=== PATIENT | male | born 1980 | race Caucasian/White ===

== ENCOUNTER 2025-06-22 10:09 | Emergency (ER) | payer MEDICAID, SELFPAY ==
--- OUTSIDE RECORDS SUMMARY | 2025-06-22 10:12 | XMS_ITS | Encounter Summary ---
Author Organization [facility] Address [address] [place] [address] Care Team Providers Care Telephone Claims Representative Name Role Phone None Reported, Pcp Primary Care Provider Unavail able Encounter Details Date Type Department Care Team (Late st Contact Info) Description 05/10/2025 Clinical Communication Department of Wound Care in [place], [place] [address] [place] [phone] Sharon Huizar, MALOU, C.N.P. [address] [place] [phone] Social History Tobacco Use Types Packs/Day Years Used Date Smoking Tobacco: Never Alcohol Use Standard Drinks/Week Comments Defer 0 (1 standard drink = 0.6 oz pur e alcohol) [facility] Utilities Answer Date Recorded In the past [address] [facility] [employer], gas, oil, or water [employer] threatened to shut off services in your home? No 03/19/2025 Humiliation, Afraid, Rape, and Kick questionnair e Answer Date Recorded Within the last year, have y ou been afraid of your partner or ex-partner? No 03/19/2025 Within the last year, have y ou been humiliated or emotionally abused in other ways by your partner or ex-partner? No Within the last year, have y ou been kicked, hit, slapped, or otherwise physically hurt by your partner or ex-partner? No 03/19/2025 Within the last year, have y ou been raped or forced to have any kind of sexual activity by your partner or ex-partner? No 03/19/2025 Hunger Vital Sign Answer Date Recorded Within the past 12 months, y ou worried that your food would run out before you got the money to buy more. Never true 03/19/20 25 Within the past 12 months, t he food you bought just didn't last and you didn't have money to get more. Never true 03/19/2025 PRAPARE - Transportation Answer Date Re corded In the past 12 months, has l ack of transportation kept you from medical appointments or from getting medications? No 03/08 In the past 12 months, has l ack of transportation kept you from meetings, work, or from getting things needed for daily living? No 03/19/2025 Housing Stability Answer Date Recorded What is your living situatio n today? I do not have a steady place to live (I am temporarily staying with others, in a hotel, in a longterm, living outside on the street, on a beach, in a car, abandoned building, bus or train station, or in a park) 03/18/2025 Sex and Gender Information Value Date Recorded Sex Assigned at Not on file Legal Sex Male 12:27 PM CDT Gender Identity Not on file Sexual Orientation Not on file documented as of this encounter Plan of Treatment Not on file documented as of this encounter Visit Diagnoses Not on filedocumented in this encounter Care Teams Telephone Claims Representative Relationship Specialty Start Date End Date None Reported, Pcp PCP - General Family Medicine 03/17/25 documented as of this encounter
--- OUTSIDE RECORDS SUMMARY | 2025-06-22 10:12 | XMS_ITS | Clinical Summary ---
Author Organization [facility] Address [address] [place] [address] Care Team Providers Care Experimental Aircraft Mechanic Name Role Phone None Reported, Pcp Primary Care Provider Unavail able Source Comments Patient records contain information from all sites at [facility]. For routine questions regarding patient records, call [phone] during business hours, M-F 8:00 AM - 5:00 PM Central Time. Record requests for emergency care only can be directed to [phone] at any time.[facility] Allergies No known active allergies Medications naproxen (EC-Naprosyn) 500 mg EC tablet Take 500 mg by mouth 2 (two) times a day as needed for pain. Active pen needle, diabetic (BD Ultra-Fine Mini Pen Needle) 31 gauge x 3/16 needleIndications :Diabetes Mellitus Type 2 Hyperglycemia (HCC) 4 each (4 Injection total) 4 (four) times a day. Use as needed for insulin injection. 400 each 3 5 Active blood sugar diagnostic stripsIndications :Diabetes Mellitus Type 2 Hyperglycemia (HCC) 4 test daily. 360 test 3 5 026 Active blood-glucose meter miscIndications:D iabetes Mellitus Type 2 Hyperglycemia (HCC) Test as directed for diabetes control. 1 each 5 Active lancetsIndication s:Diabetes Mellitus Type 2 Hyperglycemia (HCC) Use as directed for diabetes testing. 100 each 5 Active blood-glucose sensor (Dexcom G7 Sensor) deviceIndications :Diabetes Mellitus Type 2 Hyperglycemia (HCC) Use as directed for continuous glucose monitoring change every 10 days 9 each 3 5 Active miconazole 2 % powder Apply 1 Application topically daily. Apply to toes. 85 g 1 5 Active insulin glargine 100 unit/mL (3 mL) pen Inject 10 Units under the skin at bedtime. Pharmacy select brand per patient insurance/prefe rence. 15 mL 1 5 Active acetic acid 0.25 % irrigation (sterile) Apply topically daily. Apply to wounds daily as directed 500 mL 2 5 Active insulin aspart U-100 (NovoLOG FlexPen) 100 unit/mL (3 mL) pen Inject 0-13 Units under the skin 3 (three) times a day. Inject 0-13 Units total under the skin 3 (three) times daily. Glucose Range: Insulin Correction Dose Dose Less than 139: No additional insulin 140-179: 2 units 180-219: 4 units 220-259: 6 units 260-299: 8 units 300-339: 10 units 340-379: 12 units 380 or more: 13 units 15 mL 1 5 Active Active Problems Problem Noted Date Diagnosed Date Other Specified Diabetes Mellitus With Hyperglyc emia 03/17/2025 Other Specified Diabetes Dinah litus With Diabetic Neuropathy, Unspecified 03/17/2025 Counseling Unemployment 03/17/2025 Homeless Unspecified Sheltered or Unsheltered Insufficient Health Insurance Coverage 5 Low Income 03/17/2025 Loss Weight Abnormal 03/17/2025 Other Specified Diabetes Mellitus With Other Ski n Ulcer 03/17/2025 Cellulitis Leg Right 03/17/2025 Wound Lower Limb Open Initial Left 03/17/2025 Wound Lower Limb Open Initial Right 03/17/2025 Thrombocytosis Unspecified 03/17/2025 Dyslipidemia 03/17/2025 Neuropathy Peripheral 03/17/2025 Nephrolithiasis 03/26/2011 Overview (03/17/2025): Right Encounters Date Type Department Care Team Description 05/10/2025 Clinical Communication Department of Wound Care in [place], [place] [address] [place] [phone] Sharon Huizar, MALOU, C.N.P. 03/22/2025 Clinical Communication [facility] in [place], [place] [address] [place] [phone] Carmelo Stein P.A.-C. Follow-up Orders from Last 3 Months Social History Tobacco Use Types Packs/Day Years Used Date Smoking Tobacco: Never Tobacco Cessation:Counseling Given: Not Answered Alcohol Use Standard Drinks/Week Comments Defer 0 (1 standard drink = 0.6 oz pur e alcohol) [facility] Utilities Answer Date Recorded In the past 12 months has th e electric, gas, oil, or water company threatened to shut off services in your [...] with others, in a hotel, in a mcc, living outside on the street, on a beach, in a car, abandoned building, bus or train station, or in a park) 03/18/2025 Sex and Gender Information Value Date Recorded Sex Assigned at Not on file Legal Sex Male 12:27 PM CDT Gender Identity Not on file Sexual Orientation Not on file Last Filed Vital Signs Vital Sign Reading Time Taken Comments Blood Pressure 113/91 03/19/2025 11:00 AM CDT Pulse 69 03/19/2025 11:00 AM CDT Temperature 36.3 C (97.3 F) 03/19/2025 11:00 AM CDT Respiratory Rate 20 03/19/2025 11:0 0 AM CDT Oxygen Saturation 99% 03/19/2025 11: 00 AM CDT Inhaled Oxygen Concentration - - Weight 57.6 kg (126 lb 15.8 oz) 03/19/2025 7:00 AM CDT Height 182.9 cm (6' 0.01) 03/19/2025 7:00 AM CD T Body Mass Index 17.22 03/19/2025 7:00 AM CDT Plan of Treatment Health Maintenance Due Date Last Done Comments Diabetic Eye Exam 1982 Diabetic Office Visit with Foot Exam 1982 HIV Screening 1982 Hepatitis C Screening 1982 Office Visit for Blood Pressure Check / Re-check 1982 Urine Albumin 1982 Hepatitis B Vaccines (1 of 3 - 19+ 3-dose series) 2001 Pneumococcal vaccine (0-49 years) (1 of 2 - PCV) 2001 HPV Vaccines (1 - 3-dose SCD M series) 2009 DTaP,Tdap,and Td Vaccines (2 - Td or Tdap) 06/29/2019 06/29/2009 Depression Screening (Annual PHQ-2) 09/08/2024 COVID-19 Vaccine (1 - 2024-2 6 season) 2025 Influenza Vaccine (#1) 2025 07/09/2015 Hemoglobin A1C 06/17/2025 03/17/2025 Lipid (Cholesterol) Screening 03/17/2026 03/17/2025 Creatinine Level (Kidney Function Test) 03/18/2026 03/18/2025, 03/17/2025 IPV Vaccines Aged Out No longer eligi ble based on patient's age to complete this topic Procedures Procedure Name Priority Date/Time Associated Diagnosis Comments BASIC METABOLIC PANEL, S/P Routine 03/18/2025 6:16 AM CDT LIPID PANEL, S STAT 03/17/2025 3:08 PM CDT HEMOGLOBIN A1C, B STAT 03/17/2025 1:1 5 PM CDT from Last 3 Months or Most Recently Relevant to Health Maintenance Results * (ABNORMAL) Basic Metabolic Panel (03/18/2025 6:16 AM CDT) [facility] Potassium, P 3.7 3.6 - 5.2 mmol/L 03/18/2025 6:55 AM CDT [facility] Sodium, P 138 135 - 145 mmol/L 03/18/2025 6:55 AM CDT [facility] Chloride, P 105 98 - 107 mmol/L 03/18/2025 6:55 AM CDT [facility] Bicarbonate, P 25 22 - 29 mmol/L 03/18/2025 6:55 AM CDT [facility] Anion Gap, P 8 7 - 15 03/18/2025 6:55 AM CDT [facility] BUN (Blood Urea Nitrogen), P 12 8 - 24 mg/dL 03/18/2025 6:55 AM CDT [facility] Creatinine 0.72(L) 0.74 - 1.35 mg/dL 03/18/2025 6:55 AM CDT [facility] Estimated GFR (eGFR) >90 >=60 mL/min/BSA 03/18/2025 6:55 AM CDT [facility] Comment: Estimated GFR calculated using the 2020 CKD_EPI creatinine equation. Calcium, Total, P 8.4(L) 8.6 - 10.0 mg/dL 03/18/2025 6:55 AM CDT [facility] Glucose, P 205(H) 70 - 140 mg/dL 03/18/2025 6:55 AM CDT [facility] Blood (Blood, Venous) 03/18/2025 6:16 AM CDT 03/18/2025 6:31 AM CDT Ifrah Gomez APRN, C.N.P., M.S.N. LAB BLO OD ADD-ON Final Result [facility] [address] [place] [address], [facility] in [place] [address] [place] [address] * (ABNORMAL) Lipid Panel (03/17/2025 3:08 PM CDT) Triglycerides 182(H) mg/dL 03/17/2025 3:32 PM CDT [facility] Comment: ----REFERENCE VALUE---- Normal: <150 mg/dL Borderline High: 150-199 mg/dL High: 200-499 mg/dL Very High: > or =500 mg/dL Cholesterol, Total 194 mg/dL 2024 3:32 PM CDT [facility] Comment: ----REFERENCE VALUE---- Desirable: < 200 mg/dL Borderline High: 200 - 239 mg/dL High: > or = 240 mg/dL Cholesterol, LDL, Calculated 106 mg/dL 03/17/2025 3:32 PM CDT [facility] Comment: ----REFERENCE VALUE---- Desirable: <100 mg/dL Above Desirable: 100-129 mg/dL Borderline High: 130-159 mg/dL High: 160-189 mg/dL Very High: >=190 mg/dL ----ADDITIONAL INFORMATION---- LDL cholesterol calculated using the Tan/NIH equation. Cholesterol, HDL 57 >=40 mg/dL 03/17/2025 3:32 PM CDT [facility] Cholesterol, Non-HDL, Calculated 137 mg/dL 03/17/2025 3:32 PM CDT [facility] Comment: ----REFERENCE VALUE---- Desirable: <130 mg/dL Above Desirable: 130-159 mg/dL Borderline High: 160-189 mg/dL High: 190-219 mg/dL Very High: > or =220 mg/dL Fasting (8 HR or more) Unknown 03/17/2025 3:09 PM CDT [facility] Blood (Blood, Venous) 03/17/2025 3:08 PM CDT 03/17/2025 3:14 PM CDT Ifrah Gomez APRN, C.N.P., M.S.N. LAB BLO OD ADD-ON Final Result Performing Organization Address [facility] Co de Phone Number [facility] [address] [place] [address], [address] [address] * (ABNORMAL) Hemoglobin A1c (03/17/2025 1:15 PM CDT) Hemoglobin A1c, B 15.5(H) 4.2 - 5.6 % 03/17/2025 1:48 PM CDT [facility] Comment: Hemoglobin A1c values greater than or equal to 6.5 percent are diagnostic for diabetes mellitus. Diagnosis should be confirmed by repeat testing. In diabetic patients, HbA1c goals should be discussed with healthcare provider. Blood (Blood, Venous) 03/17/2025 1:15 PM CDT 03/17/2025 1:27 PM CDT King Heard M.D. LAB BLOOD ADD-ON Final Resul t Performing Organization Address [facility] Co de Phone Number [facility] [address] [place] [address], [place] [address] from Last 3 Months or Most Recently Relevant to Health Maintenance Insurance [place] [employer] Advance Directives For more information, please contact: [phone] * Full Code (Latest Code Status on File) Date Activated Date Inactivated Comments 03/17/2025 4:23 PM 03/19/2025 3:37 PM Question Answer Comments Full Code: Not Discussed Due to: Not medically appropriate Care Teams Experimental Aircraft Mechanic Relationship Specialty Start Date End Date None Reported, Pcp PCP - General Family Medicine 03/17/25
--- OUTSIDE RECORDS SUMMARY | 2025-06-22 10:12 | XMS_ITS | Clinical Summary ---
Author Organization [facility] Address [address] [place] [address] Care Team Providers Care Grand Scribe Name Role Phone Ramya Tamayo [facility] Primary Care Provider + Allergies Active Allergy Reactions Criticality Noted Date Comments Unlisted Allergen (Include Detail In Comments) 09/06/2009 Pt states that he tries to stay away from kidney stone causing foods Medications IBUPROFEN 200 MG TAB take 1 tablet (200 mg) by oral route every 6 hours as needed with food 0 06/29/2009 Active VICODIN 5 MG-500 MG TAB take 1 tablet by oral route every 4-6 hours as needed for pain 0 06/29/2009 Active Active Problems Problem Noted Date Diagnosed Date Recurrent Kidney stones 03/22/2011 Immunizations Immunization Administration Dates Next Due Tdap 06/29/2009 Family History Medical History Relation Name Comments Other Brother renal stones Other Father renal stones Relation Name Status Comments Brother Father Social History Tobacco Use Types Packs/Day Years Used Date Smoking Tobacco: Former Cigarettes Q uit: 07/10/2002 Smokeless Tobacco: Never Alcohol Use Standard Drinks/Week Comments Yes 0 (1 standard drink = 0.6 oz pur e alcohol) socially Sex and Gender Information Value Date Recorded Sex Assigned at Not on file Legal Sex Male 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 Gender Identity Not on file Sexual Orientation Not on file Obstetrics History Last Filed Vital Signs Vital Sign Reading Time Taken Comments Blood Pressure 98/60 11/05/2011 9:23 AM MARINE ENGINE MACHINIST APPRENTICE Pulse 76 11/05/2011 9:23 AM MARINE ENGINE MACHINIST APPRENTICE Temperature 36.8 C (98.3 F) 03/22/2011 2:18 PM CDT Respiratory Rate - - Oxygen Saturation 95% 09/06/2009 11:34 AM MARINE ENGINE MACHINIST APPRENTICE Inhaled Oxygen Concentration - - Weight 83 kg (183 lb) 11/05/2011 9:23 AM MARINE ENGINE MACHINIST APPRENTICE Height 180.3 cm (5' 11) 11/05/2011 9:23 AM MARINE ENGINE MACHINIST APPRENTICE Body Mass Index 25.52 11/05/2011 9:23 AM MARINE ENGINE MACHINIST APPRENTICE Plan of Treatment Health Maintenance Due Date Last Done Comments Depression screening for age 12+ 1994 HIV for age 15-65 1997 BMI (ht and wt on same day) for age 18+ 02/16/2000 Hepatitis C screening for ag e 18-79 02/16/2000 Hepatitis B series for 19+ ( 1 of 3 - 19+ 3-dose series) 2001 HPV series for age 9-45 (1 - 3-dose SCDM series) 2009 Lipids for age 35-44 2017 Tetanus booster 06/29/2019 06/29/2009 COVID-19 vaccine series ( - 2023- season) 2025 Influenza Vaccine (#1) 2025 RSV vaccine for adults or (1 - 1-dose 75+ series) 2057 Pneumococcal series for age 6-49 Aged Out No longer eligible based on patient's age to complete this topic Insurance * Guarantor: Santo Chappell Account Type Relation to Patient Date of Phone Billing Address Personal/Family Self 1980 [phone] [place] [address] [facility] [place] [address] Care Teams Grand Scribe Relationship Specialty Start Date End Date Ramya Tamayo MBBS PCP - General Internal Medicine 11/05/11
[2025-06-22 10:25] VITALS: BP 95/79; PULSE 99; RESP 18; TEMP 36.1; O2SAT 96; BMI 17.0
--- NOTE | 2025-06-22 10:30 | CRLHL7_ITS ---
For Patients: As a result of the Century Cures Act, medical imaging exams and procedure reports are released immediately into your electronic medical record. You may view this report before your referring provider. If you have questions, please contact your health care provider. Indication: Right eye blurred vision, darkness Technique: Volumetric multidetector CT images of the head were obtained without the administration of low osmolar intravenous contrast. Comparison: None available Findings: There is no intra-axial or extra-axial fluid collection. There is no mass effect or midline shift. There is global cortical atrophy with mild sulcal prominence greater than expected for age. The lateral ventricles are grossly in stable in size and position for age. There are chronic small vessel disease changes in the subcortical and periventricular white matter without lost otero-white differentiation. There is old lacunar change in the left basal ganglia. There is questionable mild asymmetrical thickening of the right preseptal, periorbital soft tissues with minimal foci of air seen trapped under the right palpebral fissures. No evidence of postseptal inflammation or intraconal abnormality. The bony calvarium is grossly intact. There is minimal polypoid mucosal thickening in the paranasal sinuses. The mastoid air cells are well aerated. Impression: 1. Demonstration of mild global cortical atrophy somewhat greater than expected for age. This finding can be associated with sequela of chronic disease. Old lacunar changes in the left basal ganglia. No definite acute intracranial abnormality. 2. Questionable mild asymmetric thickening of the periorbital, preseptal soft tissues of the right orbit with minimal foci of air seen underneath the palpebral fissure likely representing minimal entrapped gas. No evidence of postseptal inflammatory changes. Correlate with history of clinical symptoms and exam. Please note that all CT scans at this facility use dose modulation, iterative reconstruction, and/or weight-based dosing when appropriate to reduce radiation dose to as low as reasonably achievable. Dictated by Steve Ly MD @ 06/22/2025 11:06:53 AM (Electronically Signed)
[2025-06-22 10:34] LABS: Glucose, Point-of-Care* 310 mg/dl (60-115)
[2025-06-22 10:45] LABS: Hematocrit* 45.9 % (37.0-53.0); Hemoglobin* 15.6 gm/dL (13.5-17.5); Immature Granulocytes Abs Auto 0.01 K/uL (0.00-0.30); Immature Granulocytes Pct Auto 0.1 %; Lymphocytes Absolute Auto 2.03 K/uL (0.90-2.90); Mean Corpuscular HGB Conc 34 gm/dL (32-36); Mean Corpuscular Hemoglobin 29 pg (26-34); Mean Corpuscular Volume 86 fL (80-100); RDW Coefficient of Variation % 11.5 % (11.5-15.5); Red Blood Count* 5.31 m/uL (4.30-5.90); White Blood Count* 7.61 K/uL (4.50-11.00)
[2025-06-22 10:46] LABS: Slide Review Reflex No
[2025-06-22 10:50] LABS: Chloride* 98 mmol/L (96-114)
[2025-06-22 10:51] LABS: Potassium* 4.1 mmol/L (3.6-5.1); Sodium* 134 mmol/L (135-149)
[2025-06-22 10:54] LABS: Anion Gap 11 mEq/L (7-15); Blood Urea Nitrogen* 26 mg/dL (5-24); Calcium* 9.5 mg/dL (8.4-10.6); Carbon Dioxide* 25 mmol/L (20-32); Creatinine* 1.0 mg/dL (0.5-1.5); Est. Creatinine Clearance* 76.39; Estimated Glomerular Filt Rate 96 ml/min; Glucose* 291 mg/dL (60-115)
--- NOTE | 2025-06-22 11:14 | ED_ITS ---
HPI - Eye Problem General Chief complaint: Eye Problems Stated complaint: R vision blurry, intermittently black Time Seen by Provider: 06/22/25 10:56 History of Present Illness HPI Narrative: This 45-year-old male comes in having been sent here from urgent care because of a temporary loss of vision in his right eye. He states that he has been having some redness and discharge in his right eye for the past day or so but this morning he was looking in the mirror and noticed along with the redness and matting in his right eye that he had loss of vision temporarily. He states that his left eye was functioning normally but his right eye vision turned black for about 10 minutes. His vision then returned back to normal and has been normal since then. He does not report any headache. He does have diabetes and history of kidney stones. He is taking insulin for his diabetes and is also taking gabapentin and Crestor. He arrives here with normal vital signs and has no neurologic deficits. Related Data Home Medications ?Medication ?Instructions ?Recorded ?Confirmed gabapentin 300 mg capsule 300 mg PO QPM 06/22/2506/22 insulin aspart U-100 100 unit/mL subcut 06/22/25 (3 mL) subcutaneous pen (Novolog FlexPen U-100 Insulin aspart) insulin glargine 100 unit/mL (3 10 unit subcut BID 06/22/25 mL) subcutaneous pen (Lantus Solostar U-100 Insulin) rosuvastatin 10 mg tablet 10 mg PO DAILY 06/22/2506/08 Previous Rx's ?Medication ?Instructions ?Recorded polymyxin B sulfate 10,000 1 drp ophthalmic (eye) Q3H 7 days 06/22/25 unit-trimethoprim 1 mg/mL eye drops #10 mL Allergies Allergy/AdvReac Type Severity Reaction Status Date / Time No Known Drug Allergies Allergy Verified 06/22/25 09:46 Review of Systems Status of ROS: Reports: 10 or more systems reviewed and unremarkable except as noted in History and below Narrative: Constitutional: No fevers, no weight gain or loss. Eyes: Matting discharge from his right eye with erythema. Temporary loss of vision in the right eye as described above. HENT: No congestion, no sore throat, no ear pain. Cardiovascular: No chest pain, no palpitations. Respiratory: No shortness of breath, no wheezes, no cough. Gastrointestinal: No abdominal pain, no vomiting, no diarrhea. Genitourinary: No dysuria, no hematuria. Musculoskeletal: Normal range of motion. Skin: No rashes, no pruritis. Neurological: No dizziness, weakness, sensory change, speech change. Endo/Heme/Allergies: No bruising or bleeding. No polydipsia. Pysch: no suicidality, no anxiety, no insomnia. All other systems reviewed and are negative. [facility] Social History Smoking Status: Former smoker How often do you have a drink containing alcohol: never AUDIT-C Alcohol total score: 0 Non-prescribed substance use: denies use Exam Narrative: Exam Narrative: Constitutional: Well-developed, well-nourished, no acute distress. HEENT: Normocephalic, atraumatic. Erythema and matting in the right eye typical of conjunctivitis. Nondilated Funduscopic exam appears normal bilaterally. Neck: Normal range of motion. Nontender. Supple. Heart: Regular. No murmurs. Normal rate. Intact distal pulses. Lungs: Clear to auscultation. No chest discomfort. No wheezes, rhonchi, or rales. Abdomen: Normal bowel sounds. Nontender. No rebound tenderness. Genitalia: Deferred. Back: No midline tenderness. Normal range of motion. Extremities: Normal range of motion. No injury. Skin: Intact. No rash. Warm. No erythema or pallor. Neurologic: No altered sensation. No weakness. Alert and oriented. No facial asymmetry. Tongue is midline. [id number] is normal. No pronator drift. Resource Development Director strength is equal bilaterally. Able to raise each leg from the bed. Psychiatric: No suicidality. No anxiety or depression. No insomnia. Nursing notes and vitals signs are reviewed. Const: Vital Signs, click to edit/add: Vital Signs - 24 hr 06/22/25 10:25 Temperature 97.0 F L Pulse Rate [Right Pulse Oximeter] 99 Respiratory Rate 18 Blood Pressure [Ri ght Upper Arm] 95/79 Pulse Oximetry 96 Oxygen Delivery Me thod Room Air Course Vital Signs Vital signs: Initial Vital Signs Temperature 97.0 F L 06/22/25 10:25 Temperature Source Temporal Artery Scan 06/22/25 10:25 Pulse Rate 99 06/22/25 10:25 Respiratory Rate 18 06/22/25 10:25 Blood Pressure 95/79 06/22/25 10:25 Blood Pressure Mean 84 06/22/25 10:25 Pulse Oximetry 96 06/22/25 10:25 Oxygen Delivery Method Room Air 06/22/25 10:25 Vital Signs Temperature 97.0 F L 06/22/25 10:25 Pulse Rate 99 06/22/25 10:25 Respiratory Rate 18 06/22/25 10:25 Blood Pressure 95/79 06/22/25 10:25 Pulse Oximetry 96 06/22/25 10:25 Oxygen Delivery Method Room Air 06/22/25 10:25 Temperature 97.0 F L 06/22/25 10:25 Pulse Rate 99 06/22/25 10:25 Respiratory Rate 18 06/22/25 10:25 Blood Pressure 95/79 06/22/25 10:25 Pulse Oximetry 96 06/22/25 10:25 Oxygen Delivery Method Room Air 06/22/25 10:25 MDM - Eye Problem MDM Narrative Medical decision making narrative: This patient comes in reporting a loss of vision in his right eye that lasted for about 10 minutes. His vision is returned and since then he has been normal. He does not have any neurologic deficits. He does not report a headache. Labs are acquired and aside from elevated blood glucose these returned with reassuring results. In particular his sed rate is in normal range. He does not report a headache and does not have suspicious symptoms of temporal arteritis. His symptoms are suggestive of a amaurosis fugax event possibly from a clot that resolved. CT scan of his head returns normal. I was able to obtain a MRI of his brain and this also shows no sign of findings to explain these transient symptoms. I did advise the patient to take a full-strength aspirin daily seeing that he has a risk factor for thrombus with his diabetes diagnosis. I advised him to follow-up with his primary physician to review this plan as he may be can better be suited with a baby aspirin daily. He does have a bacterial conjunctivitis so I treated this with Polytrim ophthalmic solution. Lab Data Labs: Lab Results 06/22/25 06/22/25 Range/Units : 10:33 WBC 7.61 (4.50-11.00) K/uL RBC 5.31 (4.30-5.90) m/uL Hgb 15.6 (13.5-17.5) gm/dL Hct 45.9 (37.0-53.0) % MCV 86 (80-100) fL MCH 29 (26-34) pg MCHC 34 (32-36) gm/dL RDW Coeff of Didi 11.5 (11.5-15.5) % Plt Count 301 (140-440) K/uL Neut % (Auto) 64.7 (42.0-72.0) % Lymph % (Auto) 26.7 (20-44) % Hall % (Auto) 6.2 (0.0-11.0) % Eos % (Auto) 1.6 (0.0-7.0) % Baso % (Auto) 0.7 (0.0-3.0) % Neut # (Auto) 4.93 (1.7-7.0) K/uL Lymph # (Auto) 2.03 (0.90-2.90) K/uL Hall # (Auto) 0.50 (0.00-0.90) K/UL Eos # (Auto) 0.12 (0.00-0.50) K/uL Baso # (Auto) 0.05 (0.00-0.30) K/uL Abs Immat Gran (auto) 0.01 (0.00-0.30) K/uL Imm/Tot Granulo (auto) 0.1 % ESR 6 (2-15) mm/hr Sodium 134 L (135-149) mmol/L Potassium 4.1 (3.6-5.1) mmol/L Chloride 98 (96-114) mmol/L Carbon Dioxide 25 (20-32) mmol/L Anion Gap 11 (7-15) mEq/L BUN 26 H (5-24) mg/dL Creatinine 1.0 (0.5-1.5) mg/dL Estimated Creat Clear 76.39 Estimated GFR 96 ml/min Glucose 291 H (60-115) mg/dL Calcium 9.5 (8.4-10.6) mg/dL POC Glucose 310 H (60-115) mg/dl Imaging Data CT scan - head: Radiologist's impression: 1. Demonstration of mild global cortical atrophy somewhat greater than expected for age. This finding can be associated with sequela of chronic disease. Old lacunar changes in the left basal ganglia. No definite acute intracranial abnormality. 2. Questionable mild asymmetric thickening of the periorbital, preseptal soft tissues of the right orbit with minimal foci of air seen underneath the palpebral fissure likely representing minimal entrapped gas. No evidence of postseptal inflammatory changes. Correlate with history of clinical symptoms and exam. MRI - head: Radiologist's impression: 1. No acute intracranial abnormality. 2. Few punctate FLAIR hyperintensities in the supratentorial white matter are nonspecific, though most typical for sequelae of migraine headaches or minimal chronic microvascular ischemic changes. 3. Chronic lacunar infarction or prominent perivascular space in the left internal capsule genu. Discharge Plan Discharge Clinical Impression: Amaurosis fugax of right eye, Conjunctivitis Patient Disposition: Home, Self-Care Condition: Stable Additional Instructions: Take a aspirin daily and follow up with primary physician to review plans in this regard. Take Polytrim ophthalmic solution as prescribed. Return if symptoms are recurrent or worsening. Prescriptions: New polymyxin B sulf-trimethoprim 10,000 unit- 1 mg/mL drops 1 drp ophthalmic (eye) Q3H 7 Days Qty: 10 0RF Rx Instructions: while awake; do not exceed 6 doses in 24 hours No Action gabapentin 300 mg capsule 300 mg PO QPM rosuvastatin 10 mg tablet 10 mg PO DAILY insulin glargine [Lantus Solostar U-100 Insulin] 100 unit/mL (3 mL) insulin pen 10 unit subcut BID insulin aspart U-100 [Novolog FlexPen U-100 Insulin] 100 unit/mL (3 mL) insulin pen SUBCUT Patient Comments: INJECT 1 UNIT PER 40 GRAMS OF CARBS THREE TIMES A DAY WITH MEALS; 1 U PER 40GM OF CARBS PLUS SS: LESS THAN 139: NO INSULIN 140-179; 2 U, 180-219: 4 UNITS 220-259: 6 U, 260-299: 8 UNITS 300-339: 10 U, 340-379: 12 U> 380: 13 U. TOTAL DAILY DOSE IS 20 UNITS Follow Up/Referrals: Provider,Not a Local [Primary Care Provider, Family Practice] Stand Alone Forms: [email or web address] Info Instructions
--- NOTE | 2025-06-22 11:22 | CRLHL7_ITS ---
For Patients: As a result of the Century Cures Act, medical imaging exams and procedure reports are released immediately into your electronic medical record. You may view this report before your referring provider. If you have questions, please contact your health care provider. Indication: Transient vision loss in right eye. Technique: Multiplanar multisequence noncontrast MR images of the brain. Comparison: CT brain 06/22/2025. Findings: Minimal diffuse cerebral volume loss. No mass effect or midline shift. Chronic lacunar infarction or prominent perivascular space in the left internal capsule genu. Few punctate FLAIR hyperintensities in the supratentorial white matter, nonspecific. No intracranial hemorrhage or pathologic extra-axial fluid collection. No diffusion restriction to suggest acute infarction. The major arterial flow voids of the skull base are preserved. Globes are symmetric. Small right maxillary sinus retention cysts. Mild left maxillary and ethmoid sinus mucosal thickening. Trace mastoid fluid bilaterally Impression: 1. No acute intracranial abnormality. 2. Few punctate FLAIR hyperintensities in the supratentorial white matter are nonspecific, though most typical for sequelae of migraine headaches or minimal chronic microvascular ischemic changes. 3. Chronic lacunar infarction or prominent perivascular space in the left internal capsule genu. Dictated by Italo Hayes MD @ 06/22/2025 12:13:41 PM (Electronically Signed)
[2025-06-22 12:08] LABS: Erythrocyte SedimentationRate* 6 mm/hr (2-15)
== END 2025-06-22 12:37 | disposition home or self-care (01) ==
PROVIDERS: Emergency Provider Emergency Medicine Emergency Medical Services
DX: G45.3 Amaurosis fugax (principal); H10.33 Unspecified acute conjunctivitis, bilateral
CPT/HCPCS: 36415; 70450; 70551; 80048; 82947; 85025; 85651; 99284